=== PATIENT | female | born 1955 | race Caucasian/White ===

== ENCOUNTER 2019-11-01 07:50 | Day surgery (SDC) | payer MEDICARE ==
[~2019-11-01] VITALS: Ht 160 cm; Wt 74.8 kg
[2019-11-01] MEDS ORDERED: LOSARTAN POTASS50 MG PO (09:12)
[2019-11-01] MEDS ORDERED: ATIVAN2 MG PO (09:13)
[2019-11-01] MEDS ORDERED: PROPRANOLOL HCL10 MG PO (09:13)
[2019-11-01] MEDS ORDERED: OXYBUTYNIN CHLO10 MG PO (09:14)
[2019-11-01] MEDS ORDERED: OMEPRAZOLE20 MG PO (09:14)
[2019-11-01] MEDS ORDERED: LAMOTRIGINE200 MG PO (09:15)
[2019-11-01] MEDS ORDERED: ARIPIPRAZOLE20 MG PO (09:15)
--- NOTE | 2019-11-01 10:27 | NUR ---
11/01/19 1027 Sheets,Angie 1019 PT ARRIVED WITH ORAL AIRWAY IN PLACE AND ON 6L VIA MASK. JAW THRUST NEEDED OFF AND ON TO MAINTAIN AIRWAY. PT NONAROUSABLE TO PAINFUL STIMULI. 1024 PT WAKES TO PAINFUL STIMULI AND ORAL AIRWAY REMOVED. MD AT BEDSIDE AND PT DENIES PAIN. O2 MASK REMOVED. PT EASIL FALLS BACK TO SLEEP AND SMALL AMOUNT OF SNORING NOTED. HOB INCREASED SLIGHTLY AND PT ENOCURAED TO DEEP BREATHE.
--- NOTE | 2019-11-01 10:47 | NUR ---
PATIENT C/O FACE ITCHING. PATIENT PULLS MASK OFF AND IS SCRATCHING HER CHEEKS AND CHIN. PATIENT APPEARS ANXIOUS. PATIENT CONFIRMS ANXIETY. PATIENT REPORTS SUDDEN ONSET HEADACHE. CONTINUOUS PULSE OXIMETER IN PLACE. ICED WATER GIVEN. PATIENT DRINKS AND IS TOLERATING THAT WELL. CALL LIGHT WITHIN REACH. PATIENT HAS SLURRED SPEECH.
[2019-11-01] MEDS ORDERED: HYDROCODONE-ACE15 M3 PO (11:54)
--- NOTE | 2019-11-08 11:36 | OR ---
[facility] [address] [place], [place] [address] Signed DATE OF OPERATION: 11/01/2019 SURGEON: Neri Vergara MD PREOPERATIVE DIAGNOSIS: Left lingual lesion. POSTOPERATIVE DIAGNOSIS: Left lingual lesion. PROCEDURE: Wide excision of a left lingual lesion. SALES UTILITY REPRESENTATIVE: Dr. Patel. ANESTHESIA: General orotracheal; WELFARE ANALYST, Abdulaziz. PREOPERATIVE HISTORY: Ms. Liao is a 64-year-old lady, who has had a sore nonhealing on the left side of her tongue for several months. It is very uncomfortable. She is being taken to the operating room for the above-mentioned procedures. OPERATIVE PROCEDURE AND FINDINGS: After informed consent, the patient was taken to the operating room, placed in the supine position where general orotracheal anesthesia was induced. The patient and procedure were verified. Headlight exam of the oral cavity showed a 1 cm ulceration on the left side of the tongue just underneath the lateral edge. The tongue was retracted forward with the towel clip. The lesion was injected with 1% lidocaine with epi. Excision was performed with the needle point cautery with 2 to 3 mm margins, elliptical manner anterior-posterior. Specimen was removed, excising off underlying musculature. Specimen was sent to pathology in formalin. Bleeding was controlled with needle point cautery. Hemostasis was obtained, verified. The incision was then closed with 4-0 interrupted Vicryl. The pharynx was suctioned clear of blood and secretions. The patient was awakened. The towel clip was removed, transported to recovery room in good condition. No complications. BLOOD LOSS: Minimal. Electronically Signed By: NERI VERGARA MD 11/08/19 1136 PATIENT NAME: ELAINE LIAO OPERATIVE REPORT DATE OF : 51 REPORT #: [id number] PHYSICIAN: NERI VERGARA MD PCP: ANA SAHA PAC REPORT IS CONFIDENTIAL AND NOT TO BE RELEASED WITHOUT AUTHORIZATION [address] [place], [place] [address] Signed SPECIMEN: To pathology. DRAINS: No drains. Neri Vergara MD GC/LEONOR /[id number] Copies: ~ Electronically Signed By: NERI VERGARA MD 11/08/19 1136 PATIENT NAME: ELAINE LIAO OPERATIVE REPORT DATE OF : 51 REPORT #: [id number] PHYSICIAN: NERI VERGARA MD PCP: ANA SAHA PAC REPORT IS CONFIDENTIAL AND NOT TO BE RELEASED WITHOUT AUTHORIZATION
--- NOTE | 2019-11-09 12:36 | PATH ---
[facility] [address] [place], [place] [address] Signed SPECIMEN(S): A LEFT LINGUAL LESION SPECIMEN SOURCE: A. LEFT LINGUAL LESION CLINICAL HISTORY: Excision/biopsy, left lingual lesion. FINAL PATHOLOGIC DIAGNOSIS: Oral soft tissue, left lingual, excisional biopsy: - Nonspecific epithelial ulceration with associated granulation tissue and chronic mucositis. - No malignancy identified. COMMENT: PAS fungus special stain was performed on block A2, highlighting surface bacterial colonization within the ulcer bed, with no fungal elements identified. Tissue controls react appropriately. The observed histologic features are non-specific, but appear reactive in nature, without definitive evidence of a neoplastic process identified on multiple levels reviewed. Mild epithelial atypia is noted adjacent to the ulcer, however this is favored to be reactive rather than dysplastic. The differential diagnosis includes aphthous (traumatic or immune-mediated), and eosinophilic ulceration (traumatic ulcerative granuloma with stromal eosinophilia, or TUGSE). Correlation with the clinical history and presentation is encouraged, with rebiopsy recommended if the ulceration persists/recurs. This case was reviewed and dictated by Nancy Godwin DDS, MS, Board Certified Oral and Maxillofacial Pathologist. HAYESK:karthik:C2NR MICROSCOPIC EXAMINATION: Histologic sections of all submitted blocks are examined by light microscopy. These findings, together with the gross examination, support the pathologic diagnosis. GROSS DESCRIPTION: The specimen, labeled "Leeanna SEE.," and designated on the requisition "left lingual lesion," is received in formalin and consists of a 1.5 x 1.0 x 0.7 cm, unoriented elliptical cruz-brar mucosal fragment. PATIENT NAME: ELAINE CARLTON PATHOLOGY DATE OF : 51 REPORT #: [id number] PHYSICIAN: JESSICA BERNAL PCP: ANA SAHA PAC REPORT IS CONFIDENTIAL AND NOT TO BE RELEASED WITHOUT AUTHORIZATION [facility] [address] [place], [place] [address] Signed Mucosal surface contains a 0.5 x 0.5 cm, central yellow-cruz, irregular, slightly depressed lesion measuring 0.1 cm to the nearest margin. The specimen is inked blue, serially sectioned and entirely submitted in cassettes (A1-A2). AT (under the direct supervision of a pathologist) The Gross Description was prepared using a voice recognition system. The report was reviewed for accuracy; however, sound-alike word errors, addition and/or deletions may occur. If there is any question about this report, please contact Client Services. PERFORMING LABORATORY: The technical component was performed by [facility], [address] [place] [address] (Amusement Park Ride Mechanic: Rona Harris MD; CLIA# [id number]). Professional interpretation was performed by [facility], [address] [place] [address] (Amusement Park Ride Mechanic: Thierno Morales D.O.; CLIA#: [id number]). Diagnostician: Yuriy Serrano DO Pathologist Electronically Signed 11/09/2019 Copies: ~ PATIENT NAME: ELAINE CARLTON PATHOLOGY DATE OF : 51 REPORT #: [id number] PHYSICIAN: JESSICA BERNAL PCP: ANA SAHA PAC REPORT IS CONFIDENTIAL AND NOT TO BE RELEASED WITHOUT AUTHORIZATION
== END 2019-11-01 12:20 | disposition home or self-care (01) ==
LOC: DS 07:50
PROVIDERS: Otolaryngology
PROC: 0CB7XZZ Excision of Tongue, External Approach (ICD-10-PCS; principal; 2019-11-01 09:30)
DX: K12.30 Oral mucositis (ulcerative), unspecified (principal); I10 Essential (primary) hypertension; F41.9 Anxiety disorder, unspecified; F32.9 Major depressive disorder, single episode, unspecified; Z88.0 Allergy status to penicillin; Z79.899 Other long term (current) drug therapy
CPT/HCPCS: 00170; J1100; J1885; J2001; J2405; J2704; J3010; J7121